=== PATIENT | male | born 1955 | race Caucasian/White ===

== ENCOUNTER 2019-05-12 11:03 | Emergency (ER) | payer OTHER ==
[~2019-05-12] VITALS: Ht 182.9 cm; Wt 105.2 kg
[2019-05-12 11:14] VITALS: BP 119/76
--- NOTE | 2019-05-12 11:20 | NUR ---
63/M C/O RUQ PAIN 4/10 AND LOSS OF APPETITE X1 MONTH. REFERRED TO ER BY URGENT CARE FOR ELEVATED WBC AND ABD PAIN. DENIED FEVER/N/V/D. STATES ABD BLOATING. BEDRAILS UP X1; ERMD TO EVALUATE. HX: NONE RX: NONE
--- NOTE | 2019-05-12 11:20 | NUR ---
PATIENT AMBULATED WITH STEADY GAIT TO BED 7
[2019-05-12] MEDS ORDERED: NACL 0.9% 1,000 ML IV SCH (11:22)
[2019-05-12] MEDS ORDERED: KETOROLAC 30 MG/ML VIAL IVP ONE (11:25)
[2019-05-12 11:31] LABS: APPEARANCE,URINE SL CLOUDY (CLEAR); BILIRUBIN,URINE NEGATIVE (NEGATIVE); BLOOD, URINE NEGATIVE (NEGATIVE); COLOR,URINE YELLOW (YELLOW); LEUKOCYTE ESTERASE ,URINE TRACE (NEGATIVE); NITRITE, URINE NEGATIVE (NEGATIVE); PH,URINE 5.5 (5.0-9.0); UGLUCOSE NEGATIVE (NEGATIVE)
[2019-05-12 11:42] LABS: BASOPHILS # (AUTO) 0.1 K/uL (0.00-0.22); BASOPHILS % (AUTO) 0.6 % (0.0-2.0); EOSINOPHILS % (AUTO) 0.4 % (0.0-4.0); HEMATOCRIT 34.6 % (36-52); HEMOGLOBIN 11.7 g/dL (12.0-18.0); LYMPHOCYTES # (AUTO) 0.7 K/uL (2.0-11.5); MEAN CORPUSCULAR HEMOGLOBIN 29 pg (27-31); MEAN CORPUSCULAR HGB CONC 34 g/dL (33-37); MEAN CORPUSCULAR VOLUME 86.6 fL (80-94); MONOCYTES # (AUTO) 0.6 K/uL (0.8-1.0); MONOCYTES % (AUTO) 6.6 % (1.7-9.3); NEUTROPHILS # (AUTO) 8.2 K/uL (1.8-7.7); NEUTROPHILS % (AUTO) 85.4 % (42.2-75.2); PLATELET COUNT (AUTO) 831 K/uL (140-450); RED CELL DISTRIBUTION WIDTH 15.6 % (11.6-13.7); WHITE BLOOD COUNT (AUTO) 9.7 K/uL (4.8-10.8)
[2019-05-12 11:44] LABS: RBC,URINE 0-5 /HPF (0-5); WBC,URINE 0-5 /HPF (0-5)
[2019-05-12 11:45] LABS: URINE AMORPHOUS URATE 1+ /HPF (None Seen)
--- NOTE | 2019-05-12 11:46 | NUR ---
U/S TECH AT BEDSIDE
[2019-05-12 11:47] LABS: ANION GAP 16.4 (8-16); CARBON DIOXIDE 23.4 mmol/L (21-32); CREATININE 1.4 mg/dL (0.7-1.3); POTASSIUM 4.8 mmol/L (3.5-5.1)
[2019-05-12 11:52] LABS: ALBUMIN 2.2 g/dL (3.4-5.0); TOTAL BILIRUBIN 0.6 mg/dL (0.0-1.0)
--- NOTE | 2019-05-12 13:08 | NUR ---
RECEIVED REPORT FROM NEREIDA, TRANSFER OF CARE AT THIS TIME.
[2019-05-12 13:51] VITALS: BP 119/76
--- NOTE | 2019-05-12 13:52 | NUR ---
Patient discharged with v/s stable. Written and verbal after care instructions given and explained. Patient verbalized understanding. Ambulatory with steady gait. All questions addressed prior to discharge. Advised to follow up with PMD. PT INFORMED TO FOLLOW UP WITH PRIMARY IN 4-5 DAYS.
== END 2019-05-12 13:52 | disposition home or self-care (01) ==
LOC: MED 11:03
DX: R10.11 Right upper quadrant pain (principal)
CPT/HCPCS: 36415; 76705; 80053; 81001; 83690; 85025; 96374; 99284; J1885; Q0092